=== PATIENT | female | born 1995 | race Caucasian/White ===

== ENCOUNTER 2019-11-07 04:02 | Day surgery (SDC) | payer BC ==
[2019-11-07 04:52] VITALS: BP 128/80; TEMP 98.7; BMI 27.6
--- NOTE | 2019-11-07 11:20 | PDOC.LDHP ---
Labor and Delivery H&P Chief complaint: contractions HPI: Patient starting having mild contractions yesterday afternoon and into the evening. At 0300 her contractions were every 4 mins and lasting a 1 minute [address] that way for several hours. She denies lof, vb. Her fetus is moving normally. When she arrived here, her contractions became less intense and she was able to rest. Current gestational age (weeks): 39 (and 2 days) Due date: 11/12/19 Dating criteria: last menstrual period Grav: 1 Para: 0 Current medications: pre- vitamins Allergies/Adverse Reactions: Allergies Allergy/AdvReac Type Severity Reaction Status Date / Time No Known Allergies Allergy Unverified 11/07/19 04:54 Social history: none - Physical Exam Vital signs reviewed and normal: yes (BP 128/80, HR 97, Temp 98.7) General: NAD Lungs: nonlabored breathing Abdomen: gravid Extremeties: no edema FHT: category 1 (FHTs 145, moderate variability, +Accels, no decels.) - Vaginal Exam cm dilated: 2 Effacement: 90% Station: -1 - OB Labs Blood type: B RH: negative Antibody Screen: negative HIV: negative RPR: negative HEPSAg: negative 1 hour GCT: negative GBS: positive Rubella: immune - Assessment at term 39.2 in early latent labor without change since 7am P: Discharge home in good condition and follow up in clinic for routine visit.
== END 2019-11-07 12:15 | disposition home health service (06) ==
LOC: L&D/OP 04:02
PROVIDERS: ATTEND Advanced Practice Midwife
DX: O47.1 False labor at or after 37 completed weeks of gestation (principal); Z3A.39 39 weeks gestation of pregnancy

== ENCOUNTER 2019-11-07 21:27 | Inpatient (IN) | payer BC ==
[2019-11-07] MEDS ORDERED: Lidocaine 1% (PF) 30 ML VIAL SC PRN (21:54)
[2019-11-07] MEDS ORDERED: Methylergonovine 0.2 MG/ML VIAL IM PRN (21:54)
[2019-11-07] MEDS ORDERED: Ondansetron PF 4 MG/2 ML Vial IVP PRN (21:54)
[2019-11-07] MEDS ORDERED: HYDROcodone/Acetaminophen 5/325 mg Tablet PO PRN ×2 (21:54)
[2019-11-07] MEDS ORDERED: Misoprostol 200 MCG TAB PR PRN (21:54)
[2019-11-07] MEDS ORDERED: Ibuprofen 800 MG TAB PO PRN (21:54)
[2019-11-07] MEDS ORDERED: Butorphanol Tartrate 1 MG/ML VIAL SLOW IVP PRN (21:54)
[2019-11-07] MEDS ORDERED: hydrALAZINE 20 MG/ML VIAL SLOW IVP PRN (21:54)
[2019-11-07] MEDS ORDERED: Promethazine HCl 25 MG/ML VIAL IM PRN (21:54)
[2019-11-07] MEDS ORDERED: Penicillin G Potassium 5 MILL.UNITS in Sodium Chloride 0.9% 100 ML IVPB SCH (22:00)
[2019-11-07] MEDS ORDERED: Lactated Ringer's 1,000 ML IV SCH (22:00)
[2019-11-07] MEDS ORDERED: Penicillin G 2.5 MILL.units 2.5 MILL.UNITS in Premix Bag 1 BAG IVPB SCH (22:00)
[2019-11-07 22:28] LABS: Hemoglobin 11.5 g/dL (12.0-16.0); Mean Corpuscular HGB CONC 33.5 g/dL (32.0-36.0); Mean Corpuscular Hemoglobin 29.5 pg (27.0-31.0); Mean Corpuscular Volume 88.1 fL (78.0-98.0); Mean Platelet Volume 7.9 fL (7.4-10.4); Platelet Count 319 thou/uL (130-400); RBC Distribution Width 11.8 % (11.5-14.5); White Blood Cell (WBC) Count 22.3 thou/uL (4.8-10.8)
[2019-11-07 22:47] VITALS: BMI 27.6
--- NOTE | 2019-11-08 00:45 | PDOC.LDHP ---
Labor and Delivery H&P Chief complaint: contractions HPI: Patient returned to hospital today at approximately 2200 for evaluation. she was ada at home all day. Denies SROM, VB Current gestational age (weeks): 39 Due date: 11/12/19 Dating criteria: last menstrual period Grav: 1 Para: 0 Current complications: none Current medications: pre- vitamins Previous surgical history: none Allergies/Adverse Reactions: Allergies Allergy/AdvReac Type Severity Reaction Status Date / Time No Known Allergies Allergy Verified 11/07/19 22:48 Social history: none - Physical Exam Vital signs reviewed and normal: yes General: breathing through contractions Lungs: nonlabored breathing Abdomen: gravid FHT: category 2 (On decel upon arrival after SROM.) - Vaginal Exam cm dilated: 7 Effacement: 100% Station: -1 - OB Labs Blood type: B RH: negative Antibody Screen: negative HIV: negative RPR: negative HEPSAg: negative 1 hour GCT: negative GBS: positive Rubella: immune - Assessment L&D Assessment: term patient in labor - Plan Plan: admit to L&D, GBS antibiotic prophylaxis
--- NOTE | 2019-11-08 00:46 | PDOC.OPDEL ---
OB Operative/Delivery Note Delivery Dr/Surgeon: Adri Recinos CNM Pre-Delivery Diagnosis: active labor Procedure/Post Delivery Dx: spontaneous vaginal delivery Weeks gestation: 39 Anesthesia: none - Findings A Sex: female Weight: 6 lb 12 oz - 1 min: 8 - 5 min: 9 - Additional Findings/Plan Repaired Obstetrical Laceration: none Estimated blood loss: 50mL Post delivery plan: routine recovery
[2019-11-08] MEDS: NS / Oxytocin 40 units/1000ml 1,000 ML IV PRN ×2 (02:35→02:48)
[2019-11-08] MEDS ORDERED: Bisacodyl 10 MG SUPP PR PRN (02:51)
[2019-11-08] MEDS ORDERED: NS / Oxytocin 40 units/1000ml 1,000 ML IV SCH (02:51)
[2019-11-08] MEDS ORDERED: Milk Of Magnesia 30 ML UDCUP PO PRN (02:51)
[2019-11-08] MEDS ORDERED: Lanolin Ointment 7 GM TUBE TOP PRN (02:51)
[2019-11-08] MEDS ORDERED: hydrALAZINE 20 MG/ML VIAL SLOW IVP PRN (02:51)
[2019-11-08] MEDS ORDERED: Methylergonovine 0.2 MG/ML VIAL IM PRN (02:51)
[2019-11-08] MEDS ORDERED: Promethazine HCl 25 MG/ML VIAL IM PRN (02:51)
[2019-11-08] MEDS ORDERED: Misoprostol 200 MCG TAB VAG PRN (02:51)
[2019-11-08] MEDS ORDERED: Benzocaine-Menthol 82.5 ML CAN TOP PRN (02:51)
[2019-11-08] MEDS ORDERED: HYDROcodone/Acetaminophen 5/325 mg Tablet PO PRN ×2 (02:51)
[2019-11-08 02:53] LABS: HBSAg Index 0.18 S/CO (0-0.99); Hep B Surf Ag Non-Reactive S/CO (NonReactive)
[2019-11-08] MEDS: Ibuprofen 800 MG TAB PO SCH ×3 (04:49→21:46)
[2019-11-08 05:10] LABS: Syphilis Antibody Nonreactive (Nonreactive); Syphilis Antibody Index 0.05 S/CO (<1.00 Non-Reactive)
[2019-11-08] MEDS ORDERED: Adacel (T-DAP) 0.5 ML SYRINGE IM ONE (09:00)
[2019-11-08] MEDS: Ferrous Sulfate 325 MG TAB PO SCH ×2 (09:38→19:10)
[2019-11-08] MEDS: Docusate Calcium (SURFAK) 240 MG CAP PO SCH ×2 (09:39→21:47)
[2019-11-09] MEDS: Ibuprofen 800 MG TAB PO SCH ×3 (06:46→21:49)
[2019-11-09] MEDS: Docusate Calcium (SURFAK) 240 MG CAP PO SCH ×2 (09:16→21:50)
[2019-11-09] MEDS: Ferrous Sulfate 325 MG TAB PO SCH ×2 (09:16→14:21)
[2019-11-10] MEDS: Ibuprofen 800 MG TAB PO SCH (05:36)
[2019-11-10 09:01] VITALS: BP 115/78; TEMP 98.2
[2019-11-10] MEDS: Ferrous Sulfate 325 MG TAB PO SCH (09:31)
[2019-11-10] MEDS: Docusate Calcium (SURFAK) 240 MG CAP PO SCH (09:34)
--- NOTE | 2019-11-10 10:53 | PDOC.PP ---
Post Progress Note Post Day #: 1 Subjective: Patient is doing well. Had some pain with urinartio, burning. but no other concerns. has already had a BM. Is well. PO intake tolerated: yes Flatus: yes Ambulation: yes Vital Signs (12 hours) Temp Pulse Resp BP Pulse Ox 11/10/19 09:00 98.2 F 71 20 115/78 98 11/10/19 00:10 97.7 F 68 18 120/76 99 Weight Weight 161 lb - Physical Examination General: NAD Cardiovascular: RRR Respiratory: clear to auscultation bilaterally, non-labored breathing Abdominal: + bowel sounds, lochia (minimal) Extremities: negative homans (B) Skin: no rash Neurological: no gross focal deficits Psychiatric: normal affect Result Diagrams: 11/07/19 22:14 Additional Labs: Post Labs Blood Type B NEGATIVE 11/08/19 02:40 Hep Bs Antigen Non-Reactive S/CO (NonReactive) 11/08/19 02:04 - Assessment/Plan a: g1now p1 sp . no laceration. P: routine care
== END 2019-11-10 12:00 | disposition home or self-care (01) | DRG 807 ==
LOC: L&D/OP 21:27 → L&D-LIB 22:30 → 3SW 11-08 03:43
PROVIDERS: ADMIT Student in an Organized Health Care Education/Training Program; ATTEND Student in an Organized Health Care Education/Training Program
PROC: 10E0XZZ Delivery of Products of Conception, External Approach (ICD-10-PCS; principal; 2019-11-08)
DX: O99.824 Streptococcus B carrier state complicating childbirth (principal); Z37.0 Single live birth; Z3A.39 39 weeks gestation of pregnancy
CPT/HCPCS: 36415; 51701; 51702; 85027; 86780; 86850; 86870; 86900; 86901; 87340; 99283; 99285; J2001; J2540; J3490